=== PATIENT | male | born 1990 | race Hispanic/Latino ===

== ENCOUNTER 2024-08-11 17:40 | Emergency (ER) | payer OTHER ==
[~2024-08-11] VITALS: Ht 172.7 cm; Wt 96.2 kg
--- NOTE | 2024-08-11 17:51 | ERN ---
ED Note History of Present Illness Stated Complaint: RUQ PAIN Chief Complaint: Abdominal Pain Time Seen by MD: 17:42 Time Seen by Midlevel: 17:44 Dictation: 33-year-old male with no medical history coming in complaining of headache, nausea, dizziness, right upper quadrant pain, yellow stools for one week. Patient states [facility] ago and was told that his liver enzymes were elevated. Allergies: Coded Allergies: No Known Drug Allergies (Unverified Allergy, Unknown, 08/11/24) Past Medical History Past Medical History: GERD Surgical History: None Review of System Dictation Constitutional: Negative for fever,chills, and weight loss Eyes: Negative for injury, pain,redness, and discharge ENT: Negative for injury,pain or swelling Cardiovascular: Negative for chest pain, palpitations, and edema Respiratory: Negative for shortness of breath, cough, and wheezing, Abdomen/GI: Epigastric and right upper quadrant pain with nausea Back: Negative for injury and pain : Negative for injury, bleeding and discharge MS/Extremity: Negative for injury and deformity Skin: Negative for rash, and discoloration Neuro: Negative for headache, weakness, numbness, tingling, and seizure Psych: Negative for suicide ideation, homicidal ideation, and hallucinations Review of Systems: was completed Initial Vital Sign VS Vital Signs Date Time Temp Pulse Resp B/P (MAP) Pulse Ox O2 Delivery O2 Flow Rate FiO2 08/11/24 17:41 98.1 98 16 146/103 99 Room Air 0 08/11/24 18:15 21 Physical Exam Dictation General: awake, alert, NAD Head/Face: Normocephalic, atraumatic Eyes: PERRL, EOMI, vision at baseline ENT: oral cavity clear, TMs clear, no signs of infection Neck: Trachea midline, supple, no nuchal rigidity Cardiovascular: RRR, normal S1/S2, No MRGs, no JVD Respiratory: CTAB, no respiratory distress, No rales or wheezes Abdomen: Soft, non-tender, non-distended, normal bowel sounds, no guarding or rebound.Negative Emma Skin: Warm, dry, normal turgor, no rash MS/Extremity: Pulses equal, no cyanosis, neurovascular intact, FROM Neuro: COAx4, GCS 15, strength 5/5, CN 2-12 intact, normal cerebellar exam, normal gait, Psych: Normal behavior, mood, and affect normal Results (Laboratory/Radiology) Laboratory/Radiology Laboratory Tests Test 08/11/24 17:54 White Blood Count 8.1 K/uL (4.8-10.8) Red Blood Count 5.58 MIL/uL (4.50-6.20) Hemoglobin 16.5 g/dL (14.0-18.0) Hematocrit 47.0 % (42-54) Mean Corpuscular Volume 84.2 fL (79-99) Mean Corpuscular Hemoglobin 29.6 pg (27.0-33.0) Mean Corpuscular Hemoglobin Concent 35.1 g/dL (32.0-36.0) Red Cell Distribution Width 11.9 % (11.0-15.5) Platelet Count 306 K/uL (130-400) Mean Platelet Volume 8.9 fL (7.5-10.5) Immature Granulocyte % (Auto) 0.4 % (0-1) Neutrophils (%) (Auto) 58.9 % (40.0-77.0) Lymphocytes (%) (Auto) 31.4 % (21.0-51.0) Monocytes (%) (Auto) 6.8 % (3.0-13.0) Eosinophils (%) (Auto) 2.0 % (0.0-8.0) Basophils (%) (Auto) 0.5 % (0.0-5.0) Neutrophils # (Auto) 4.8 K/uL (1.8-7.7) Lymphocytes # (Auto) 2.5 K/uL (1.0-4.8) Monocytes # (Auto) 0.6 K/uL (0.1-1.0) Eosinophils # (Auto) 0.16 K/uL (0.00-0.70) Basophils # (Auto) 0.04 K/uL (0.00-0.20) Absolute Immature Granulocyte (auto 0.03 K/uL (0-1) Nucleated Red Blood Cells 0.0 % (0.0-0.19) Sodium Level 143 mmol/L (136-145) Potassium Level 4.0 mmol/L (3.5-5.1) Chloride Level 104 mmol/L (101-111) Carbon Dioxide Level 30 mmol/L (21-32) Blood Urea Nitrogen 13 mg/dL (7-18) Creatinine 0.9 mg/dL (0.5-1.3) Glomerular Filtration Rate Calc 115 mL/min (>90) Random Glucose 100 mg/dL (70-105) Total Calcium 9.5 mg/dL (8.5-10.1) Total Bilirubin 0.9 mg/dL (0.2-1.0) Direct Bilirubin 0.2 mg/dL (0.0-0.3) Aspartate Amino Transf (AST/SGOT) 21 U/L (10-37) Alanine Aminotransferase (ALT/SGPT) 58 U/L (12-78) Alkaline Phosphatase 104 U/L (50-136) Total Protein 8.6 g/dL (6.0-8.3) H Albumin 4.7 g/dL (3.5-5.0) Lipase 28 U/L (16-77) Labs Reviewed?: Yes ED Course ED Course Orders Procedure Category Date Status Time Cbc With Differential LAB 08/11/24 Complete 17:47 Basic Metabolic Panel LAB 08/11/24 Complete 17:47 Lipase LAB 08/11/24 Complete 17:47 Hepatic Function Panel LAB 08/11/24 Complete 17:47 0.9%Nacl 1000ml (Ns PHA 08/11/24 In Process 1000ml) 17:51 Ondansetron 4mg Inj PHA 08/11/24 Complete (Zofran 4mg Inj) 17:51 Famotidine 20mg Vial PHA 08/11/24 Complete (Pepcid 20mg Vial) 17:51 Ketorolac PHA 08/11/24 Complete Tromethamine 15mg/Ml 18:19 Current Medications Medications (Trade) Dose Ordered Sig/Abran Route PRN Reason Start Time Stop Time Status Last Admin Dose Admin Famotidine (Pepcid 20mg Vial) 20 mg ONCE STAT IV 08/11/24 17:51 08/11/24 17:53 DC 08/11/24 18:13 Ketorolac Tromethamine (toRADol) 15 mg ONCE STAT IV 08/11/24 18:19 08/11/24 18:24 DC Ondansetron HCl (zoFRAN 4MG INJ) 4 mg ONCE STAT IVP 08/11/24 17:51 08/11/24 17:53 DC 08/11/24 18:13 Sodium Chloride 1,000 ml @ 1,000 mls/hr Q1H STAT IV 08/11/24 17:51 08/11/24 18:50 08/11/24 18:13 Vital Signs Date Time Temp Pulse Resp B/P (MAP) Pulse Ox O2 Delivery O2 Flow Rate FiO2 08/11/24 18:15 99.1 92 18 116/69 96 Room Air* 0 21 08/11/24 17:41 98.1 98 16 146/103 99 Room Air 0 Medical Decision Making MDM MDM: 33-year-old male with no medical history coming in complaining of headache, nausea, dizziness, right upper quadrant pain, yellow stools for one week. Patient states [facility] and was told that his liver e nzymes were elevated. CBC shows no leukocytosis, no anemia, no thrombocytopenia. Chemistry shows no electrolyte abnormalities, normal kidney function. No transaminitis. Lipase and T bili within normal range. Discussed with the patient his liver enzymes were back to normal today. Educated patient regarding his epigastric pain and right upper quadrant pain he is to follow up with his PCP and with GI. Educated that I will give numb it and number of GI so he can call and make an appointment. Educated on symptoms to return back to the ER like fevers comment, nausea vomiting Differential diagnosis: Pancreatitis, elevated liver enzymes, Rationale: Tests considered and ordered secondary to shared decision making include: Previous outside records reviewed: Old ER visits. Risk of complication and/or morbidity or mortality of patient management: None Medications-Per medication reconciliation Need for hospitalization: Patient does not meet criteria for hospitalization. Need for emergency major/minor surgery: No There are no social concerns with this patient. Prescription drug management Prescriptions will include symptomatic care Patient's prior external medical records from other ER visits were reviewed by me as indicated. Prior testing and results from previous visits were reviewed. Prior tests were taken into account with medical decision making and resource utilization, independent historian/historians were used to obtain complete medical history. I independently interpreted the test that were performed, results were reviewed by me and considered findings on radiology if ordered. Medical management and examination interpretation discussions were had by me with other qualified healthcare professionals as indicated for the patient's care. DX & DISP Disposition: Discharge Departure Impression: Primary Impression: Abdominal pain Condition: Stable Scripts Dicyclomine HCl (Bentyl) 20 Mg Tab 1 TAB PO BID for irritable bowel symptoms for 15 Days, #30 TAB 0 Refills Prov: GARNER,KOSTA [employer] 08/11/24 Famotidine (Pepcid) 20 Mg Tablet 1 TAB PO BID for 30 Days, #60 TAB 0 Refills Prov: KOSTA GARNER NP 08/11/24 Ondansetron (Ondansetron Odt) 4 Mg Tab.rapdis 4 MG PO Q6HPRN PRN for nausea, #16 TAB 0 Refills Prov: KOSTA GARNER NP 08/11/24 Referrals: SELF,REFERRAL (PCP) Time of Disposition: 18:29 I have reviewed the case, and I agree with, Diagnosis and Plan KOSTA GARNER NP Aug 11, 2024 17:51
[2024-08-11 18:00] LABS: IMMATURE GRANULOCYTE ABSOLUTE 0.03 K/uL (0-1); NUCLEATED RED BLOOD CELLS 0.0 % (0.0-0.19); PLATELET COUNT (AUTO) 306 K/uL (130-400); RED BLOOD CELL COUNT(AUTO) 5.58 MIL/uL (4.50-6.20); RED CELL DISTRIBUTION WIDTH 11.9 % (11.0-15.5); WHITE BLOOD COUNT (AUTO) 8.1 K/uL (4.8-10.8)
[2024-08-11 18:09] LABS: CREATININE 0.9 mg/dL (0.5-1.3); GLOMERULAR FILTR. RATE CALC 115.0 mL/min (>90); GLUCOSE,RANDOM 100.0 mg/dL (70-105); SODIUM SERUM 143.0 mmol/L (136-145); UREA NITROGEN, BLOOD 13.0 mg/dL (7-18)
[2024-08-11 18:13] LABS: ASPARTATE AMINOTRANSFERASE 21.0 U/L (10-37); TOTAL PROTEIN, SERUM 8.6 g/dL (6.0-8.3)
[2024-08-11] MEDS: 0.9%NACL 1000ML 1,000 ML IV STA (18:13)
[2024-08-11] MEDS: FAMOTIDINE 20MG VIAL IV STA (18:13)
[2024-08-11 18:15] VITALS: BP 116/69; PULSE 92; RESP 18; TEMP 99.2; O2SAT 96
[2024-08-11] MEDS ORDERED: ONDA-243 PO (18:29)
[2024-08-11] MEDS ORDERED: DICY20TA2 PO (18:29)
[2024-08-11] MEDS ORDERED: FAMO-136 PO (18:29)
== END 2024-08-11 18:55 | disposition home or self-care (01) ==
LOC: EDH 17:40
DX: R10.11 Right upper quadrant pain (principal); K21.9 Gastro-esophageal reflux disease without esophagitis
CPT/HCPCS: 99284; 96374; 96375; 80076; 80048; 83690; 85025; 36415; J1885; J3490; J2405